=== PATIENT | female | born 1990 | race African-American/Black ===

== ENCOUNTER 2023-12-02 17:15 | Emergency (ER) | payer OTHER ==
[~2023-12-02] VITALS: Ht 167.6 cm; Wt 68.0 kg
[2023-12-02 17:30] VITALS: BP 124/77; PULSE 106; RESP 20; TEMP 98.6; O2SAT 99
== END 2023-12-02 18:44 | disposition left against medical advice (07) ==
LOC: ER 17:51
DX: R68.89 Other general symptoms and signs (principal); Z53.21 Procedure and treatment not carried out due to patient leaving prior to being seen by health care provider
CPT/HCPCS: 99281